=== PATIENT | female | born 1945 | race Caucasian/White ===

== ENCOUNTER 2017-09-08 18:03 | Inpatient (IN) | payer OTHER, MEDICARE ==
[~2017-09-08] VITALS: Ht 160 cm; Wt 75.2 kg
[~2017-09-08 18:03] MED LIST: AMLODIPINE BESYL5 MG PO; ARICEPT5 MG PO; Ascorbic Acid,Ester- PO; CITALOPRAM HBR20 M1 PO; COZAAR100 MG PO; Cozaar PO; DITROPAN XL15 MG PO; Ecotrin PO; FOLIC ACID1 MG PO; Folvite PO; K-Dur PO; KLOR-CON20 MEQ PO; LEXAPRO10 MG PO; LIBRIUM25 MG PO; LIDODERM 5% P1 PATCH TD; LOSARTAN POTASS25 MG PO; LOSARTAN-HCTZ1 EAC1 PO; Motrin PO; NEXIUM40 MG PO; NITROSTAT0.4 MG SL; Nitrostat,NitroQuick SL; Norvasc PO; ONDANSETRON HCL4 M2 PO; OXYBUTYNIN CHLO15 MG PO; Oscal 500 w/Vitamin PO; PERCOCET 5/31 TABLET PO; PRAVACHOL20 MG PO; PROTONIX40 MG PO; Percocet 5/325,Endoc PO; Protonix PO; Senokot,Sennagen PO; TRAZODONE HCL50 MG; TRAZODONE HCL50 MG PO; Thiamine,Vitamin B1 PO; VITAMIN B-1100 MG PO; [UNRECOGNIZED DRUG - REMARK]
[2017-09-08 18:54] LABS: BASOPHIL (%) 0.1 % (0-1); EOSINOPHIL (%) 0.1 % (0-5); HEMATOCRIT 36.7 % (36.0-46.0); IMMATURE GRANULOCYTE (%) 0.6 % (0.0-0.7); LYMPHOCYTE (%) 9.7 % (15-42); LYMPHOCYTE COUNT 1.1 K/uL (1.0-2.8); MCH 32.8 PG (29.0-34.0); MCHC 32.7 G/DL (30.0-36.0); MCV 100.3 FL (83-99); MONOCYTE (%) 6.8 % (3-12); MONOCYTE COUNT 0.8 K/uL (0-0.8); NEUTROPHIL (%) 82.7 % (45-76); NEUTROPHIL COUNT 9.5 K/uL (1.8-6.4); PLATELET COUNT 270 K/uL (156-360); RBC DIS.WIDTH-CV 13.1 % (11.8-14.6); RBC DIS.WIDTH-SD 48.4 % (39-53); RED BLOOD COUNT 3.66 M/uL (3.80-5.20); WHITE BLOOD COUNT 11.4 K/uL (4.1-10.2)
[2017-09-08 19:03] LABS: CHLORIDE 99 mEq/L (99-109); POTASSIUM 5.1 mEq/L (3.7-5.4); SODIUM 141 mEq/L (136-147)
[2017-09-08 19:04] LABS: GLUCOSE 218 mg/dL (70-99)
[2017-09-08 19:08] LABS: CREATININE 1.8 mg/dL (0.6-1.3); GFR ESTIMATE (CALCULATED) 29 mL/min/
[2017-09-08 19:09] LABS: UREA NITROGEN (BUN) 37 mg/dL (9-23)
[2017-09-08 19:16] LABS: TROP-I INTERPRETATION NEGATIVE; TROPONIN-I 0.05 ng/mL (0.0-0.30)
[2017-09-08 20:00] LABS: PTT 24.7 SEC (25-37)
[2017-09-08 20:12] LABS: APPEARANCE CLEAR ((CLEAR)); BILIRUBIN NEGATIVE; BLOOD NEGATIVE; COLOR YELLOW ((YELLOW)); GLUCOSE (STRIP) NEGATIVE; KETONES 80; LEUKOCYTES NEGATIVE; NITRITE NEGATIVE; PROTEIN (STRIP) 30; SPECIFIC GRAVITY 1.016 (1.000-1.030); UCUL ADDED? NO; UROBILINOGEN 0.2 MG/DL (0.2-1.0)
[2017-09-08] MEDS ORDERED: LIPITOR40 MG PO (22:06)
[2017-09-08] MEDS ORDERED: AVAPRO300 MG PO (22:07)
[2017-09-08] MEDS ORDERED: ASPIR 8181 M1 PO (22:07)
[2017-09-08] MEDS ORDERED: WOMEN'S 50 PLU1 EACH PO (22:07)
[2017-09-09 02:31] LABS: CHLORIDE 106 mEq/L (99-109); POTASSIUM 4.6 mEq/L (3.7-5.4); SODIUM 140 mEq/L (136-147)
[2017-09-09 02:33] LABS: GLUCOSE 188 mg/dL (70-99)
[2017-09-09 02:34] LABS: TOTAL PROTEIN 6.6 g/dL (6.4-8.3)
[2017-09-09 02:35] LABS: TOTAL BILIRUBIN 0.8 mg/dL (0.0-1.0)
[2017-09-09 02:37] LABS: ALKALINE PHOSPHATASE 63 IU/L (3-129); CREATININE 1.4 mg/dL (0.6-1.3); GFR ESTIMATE (CALCULATED) 39 mL/min/
[2017-09-09 02:38] LABS: UREA NITROGEN (BUN) 37 mg/dL (9-23)
[2017-09-09 02:39] LABS: AST (GOT) 36 IU/L (2-34); DIRECT BILIRUBIN 0.3 mg/dL (0.0-0.3)
[2017-09-09 02:40] LABS: ALT (GPT) 20 IU/L (3-49); LIPASE 16 U/L (1.0-51.0)
[2017-09-09 03:08] LABS: TROP-I INTERPRETATION NEGATIVE; TROPONIN-I 0.09 ng/mL (0.0-0.30)
[2017-09-09 08:40] LABS: HEMATOCRIT 29.2 % (36.0-46.0); HEMOGLOBIN 10.3 G/DL (11.9-15.5); MCH 32.9 PG (29.0-34.0); MCHC 35.3 G/DL (30.0-36.0); PLATELET COUNT 216 K/uL (156-360); RBC DIS.WIDTH-CV 12.8 % (11.8-14.6); RBC DIS.WIDTH-SD 43.8 % (39-53); RED BLOOD COUNT 3.13 M/uL (3.80-5.20); WHITE BLOOD COUNT 5.1 K/uL (4.1-10.2)
[2017-09-09 08:42] LABS: MCV 93.3 FL (83-99)
[2017-09-09 08:50] LABS: CHLORIDE 105 mEq/L (99-109); POTASSIUM 4.2 mEq/L (3.7-5.4); SODIUM 138 mEq/L (136-147)
[2017-09-09 08:52] LABS: GLUCOSE 154 mg/dL (70-99)
[2017-09-09 08:56] LABS: CREATININE 1.4 mg/dL (0.6-1.3); GFR ESTIMATE (CALCULATED) 39 mL/min/
[2017-09-09 08:57] LABS: UREA NITROGEN (BUN) 33 mg/dL (9-23)
[2017-09-09 09:00] LABS: TROP-I INTERPRETATION NEGATIVE; TROPONIN-I 0.11 ng/mL (0.0-0.30)
[2017-09-09 11:21] LABS: MAGNESIUM 1.8 mg/dL (1.3-2.7)
[2017-09-09 11:25] LABS: SERUM ETHYL ALCOHOL < 10 mg/dL
[2017-09-09 11:28] LABS: ACETAMINOPHEN (TYLENOL) 12 mcg/mL (10-30); SALICYLATE < 5.0 MG/DL (15-30)
[2017-09-09 12:06] LABS: AMPHETAMINE NEGATIVE (500 ng/mL); BARBITURATES NEGATIVE (200 ng/mL); BENZODIAZEPINES NEGATIVE (150 ng/mL); BUPRENORPHINE NEGATIVE (10 ng/mL); COCAINE NEGATIVE (150 ng/mL); METHADONE NEGATIVE (200 ng/mL); METHAMPHETAMINE NEGATIVE (500 ng/mL); OPIATES (MORPHINE) NEGATIVE (100 ng/mL); OXYCODONE NEGATIVE (100 ng/mL); PHENCYCLIDINE NEGATIVE (25 ng/mL); PROPOXYPHENE NEGATIVE (300 ng/mL); THC CANNABINOIDS NEGATIVE (50 ng/mL); TRICYCLIC ANTIDEPRESSANTS NEGATIVE (300 ng/mL)
[2017-09-09 13:59] VITALS: BP 135/66
[2017-09-09 17:13] LABS: TROP-I INTERPRETATION NEGATIVE; TROPONIN-I 0.09 ng/mL (0.0-0.30)
[2017-09-09 19:14] VITALS: BP 129/68
[2017-09-09 23:18] VITALS: BP 138/65
[2017-09-10 03:57] VITALS: BP 123/72
[2017-09-10 05:30] LABS: BASOPHIL (%) 0.2 % (0-1); EOSINOPHIL (%) 0 % (0-5); HEMATOCRIT 28.5 % (36.0-46.0); HEMOGLOBIN 9.7 G/DL (11.9-15.5); LYMPHOCYTE (%) 42.3 % (15-42); MCH 32.7 PG (29.0-34.0); MONOCYTE (%) 5.4 % (3-12); MONOCYTE COUNT 0.3 K/uL (0-0.8); NEUTROPHIL (%) 52.1 % (45-76); NEUTROPHIL COUNT 2.5 K/uL (1.8-6.4); PLATELET COUNT 167 K/uL (156-360); RBC DIS.WIDTH-CV 13.2 % (11.8-14.6); RBC DIS.WIDTH-SD 46.1 % (39-53); RED BLOOD COUNT 2.97 M/uL (3.80-5.20); WHITE BLOOD COUNT 4.8 K/uL (4.1-10.2)
[2017-09-10 06:00] LABS: ALBUMIN 3.1 G/DL (3.2-4.8); ALKALINE PHOSPHATASE 43 IU/L (3-129); ALT (GPT) 17 IU/L (3-49); AST (GOT) 38 IU/L (2-34); CHLORIDE 110 MEQ/L (99-109); CREATININE 0.8 MG/DL (0.6-1.3); GFR ESTIMATE (CALCULATED) > 59 mL/min/; GLUCOSE 104 mg/dL (70-99); POTASSIUM 3.6 MEQ/L (3.7-5.4); SODIUM 142 MEQ/L (136-147); TOTAL PROTEIN 4.9 G/DL (6.4-8.3); UREA NITROGEN (BUN) 18 mg/dL (9-23)
[2017-09-10 06:44] LABS: HEMOGLOBIN A1c (GLYCOHEMOGLOB) 5.6 % (Below 5.7)
[2017-09-10 08:15] VITALS: BP 173/75
[2017-09-10 14:39] VITALS: BP 155/79
[2017-09-10 19:45] VITALS: BP 168/84
[2017-09-10 23:16] VITALS: BP 180/73
[2017-09-11 03:21] VITALS: BP 158/64
[2017-09-11 07:38] VITALS: BP 137/88
[2017-09-11 08:32] LABS: HEMATOCRIT 35.6 % (36.0-46.0); MCH 32.2 PG (29.0-34.0); MCV 94.7 FL (83-99); PLATELET COUNT 179 K/uL (156-360); RBC DIS.WIDTH-CV 12.8 % (11.8-14.6); RBC DIS.WIDTH-SD 44.4 % (39-53); WHITE BLOOD COUNT 7.6 K/uL (4.1-10.2)
[2017-09-11 08:35] LABS: HEMOGLOBIN 12.1 G/DL (11.9-15.5); RED BLOOD COUNT 3.76 M/uL (3.80-5.20)
[2017-09-11 08:55] LABS: CHLORIDE 102 MEQ/L (99-109); CREATININE 0.7 MG/DL (0.6-1.3); GFR ESTIMATE (CALCULATED) > 59 mL/min/; GLUCOSE 103 mg/dL (70-99); POTASSIUM 3.4 MEQ/L (3.7-5.4); SODIUM 137 MEQ/L (136-147); UREA NITROGEN (BUN) 9 mg/dL (9-23)
[2017-09-11 10:40] VITALS: BP 184/97
[2017-09-11 10:45] VITALS: BP 157/101
[2017-09-11 11:08] VITALS: BP 137/95
[2017-09-12 00:47] VITALS: BP 149/73
[2017-09-12 04:39] VITALS: BP 175/84
[2017-09-12 07:15] VITALS: BP 173/93
[2017-09-12 08:25] LABS: HEMATOCRIT 34.3 % (36.0-46.0); HEMOGLOBIN 11.9 G/DL (11.9-15.5); MCH 32.5 PG (29.0-34.0); MCHC 34.7 G/DL (30.0-36.0); MCV 93.7 FL (83-99); PLATELET COUNT 181 K/uL (156-360); RBC DIS.WIDTH-CV 12.1 % (11.8-14.6); RBC DIS.WIDTH-SD 41.9 % (39-53); RED BLOOD COUNT 3.66 M/uL (3.80-5.20)
[2017-09-12 08:48] LABS: CHLORIDE 101 MEQ/L (99-109); CREATININE 0.8 MG/DL (0.6-1.3); GFR ESTIMATE (CALCULATED) > 59 mL/min/; GLUCOSE 144 mg/dL (70-99); POTASSIUM 3.7 MEQ/L (3.7-5.4); SODIUM 137 MEQ/L (136-147); UREA NITROGEN (BUN) 14 mg/dL (9-23)
[2017-09-12 17:36] VITALS: BP 180/93
[2017-09-12 19:40] VITALS: BP 178/90
[2017-09-12 23:43] VITALS: BP 175/96
[2017-09-13 02:25] VITALS: BP 156/84
[2017-09-13 06:32] LABS: BASOPHIL (%) 0.2 % (0-1); EOSINOPHIL (%) 2.2 % (0-5); EOSINOPHIL COUNT 0.2 K/uL (0-0.3); HEMATOCRIT 33.7 % (36.0-46.0); HEMOGLOBIN 11.7 G/DL (11.9-15.5); IMMATURE GRANULOCYTE (%) 0.6 % (0.0-0.7); LYMPHOCYTE COUNT 2.6 K/uL (1.0-2.8); MCH 32.3 PG (29.0-34.0); MCHC 34.7 G/DL (30.0-36.0); MCV 93.1 FL (83-99); MONOCYTE (%) 3.9 % (3-12); MONOCYTE COUNT 0.3 K/uL (0-0.8); NEUTROPHIL (%) 63.1 % (45-76); NEUTROPHIL COUNT 5.5 K/uL (1.8-6.4); PLATELET COUNT 184 K/uL (156-360); RBC DIS.WIDTH-CV 12.1 % (11.8-14.6); RBC DIS.WIDTH-SD 41.6 % (39-53); RED BLOOD COUNT 3.62 M/uL (3.80-5.20); WHITE BLOOD COUNT 8.7 K/uL (4.1-10.2)
[2017-09-13 06:53] LABS: CHLORIDE 104 MEQ/L (99-109); CREATININE 0.8 MG/DL (0.6-1.3); GFR ESTIMATE (CALCULATED) > 59 mL/min/; POTASSIUM 3.4 MEQ/L (3.7-5.4); SODIUM 143 MEQ/L (136-147); UREA NITROGEN (BUN) 14 mg/dL (9-23)
[2017-09-13 06:56] LABS: GLUCOSE 105 mg/dL (70-99)
[2017-09-13 09:45] VITALS: BP 166/77
[2017-09-13] MEDS ORDERED: PANTOPRAZOLE SO40 MG PO (12:20)
[2017-09-13] MEDS ORDERED: ASPIR-LOW81 MG PO (12:20)
[2017-09-13] MEDS ORDERED: XARELTO20 MG PO (12:20)
[2017-09-13] MEDS ORDERED: LOSARTAN POTASS50 MG PO (12:20)
[2017-09-13 12:23] VITALS: BP 127/77
== END 2017-09-13 13:00 | disposition home or self-care (01) | DRG 287 ==
LOC: EME 18:03 → EDOF 09-09 02:11 → ENRESERV 09-09 02:11 → EDOF 09-09 02:11 → ENRESERV 09-09 12:57 → 5WEST 09-09 13:51 → ENRESERV 09-11 10:51 → 5WEST 09-11 14:33 → ENRESERV 09-11 14:54 → 5WEST 09-11 14:55 → ENRESERV 09-12 05:27 → CANRESERV 09-12 05:27 → ENPENDDIS 09-13 12:23 → 5WEST 09-13 13:00
PROVIDERS: Emergency Medicine; Hospitalist; Internal Medicine; Nurse Practitioner Adult Health
DX: R07.9 Chest pain, unspecified (principal); N17.9 Acute kidney failure, unspecified; K52.9 Noninfective gastroenteritis and colitis, unspecified; E87.2 Acidosis; D75.89 Other specified diseases of blood and blood-forming organs; K21.9 Gastro-esophageal reflux disease without esophagitis; E78.5 Hyperlipidemia, unspecified; F10.10 Alcohol abuse, uncomplicated; F32.9 Major depressive disorder, single episode, unspecified; F41.9 Anxiety disorder, unspecified; I11.9 Hypertensive heart disease without heart failure; D53.9 Nutritional anemia, unspecified; E86.0 Dehydration; F10.20 Alcohol dependence, uncomplicated; I48.91 Unspecified atrial fibrillation; I35.0 Nonrheumatic aortic (valve) stenosis; I48.0 Paroxysmal atrial fibrillation; K76.0 Fatty (change of) liver, not elsewhere classified; Z79.01 Long term (current) use of anticoagulants; Z79.899 Other long term (current) drug therapy; Z79.82 Long term (current) use of aspirin; Z91.041 Radiographic dye allergy status; Z82.49 Family history of ischemic heart disease and other diseases of the circulatory system; Z96.641 Presence of right artificial hip joint; R51 Headache; R00.0 Tachycardia, unspecified; K59.00 Constipation, unspecified; K57.90 Diverticulosis of intestine, part unspecified, without perforation or abscess without bleeding
CPT/HCPCS: 70450; 71045; 71250; 74176; 80048; 80048 91; 80053; 80076; 80306 90; 81003; 82948; 83036; 83605; 83690; 83735; 84484; 85025; 85027; 85610; 85730; 87502; 93005; 99281; 99285; C1769; C1887; C9113; G0378; G0480; J0360; J1200; J1644; J2250; J2270; J2405; J2765; J2930; J3010; J7030; J7040; S0028